=== PATIENT | male | born 1960 | race Caucasian/White ===

== ENCOUNTER 2017-10-18 19:32 | Emergency (ER) | payer BC, SELFPAY ==
[2017-10-18 19:35] VITALS: BP 162/119; PULSE 98; RESP 18; TEMP 36.5; O2SAT 99; BMI 29.6
--- NOTE | 2017-10-18 19:36 | ED.RN ---
RN CALLED FOR EKG, PULLED OLD EKG'S FOR
[2017-10-18 19:52] VITALS: PULSE 89; RESP 15; O2SAT 98
--- NOTE | 2017-10-18 19:58 | EKG12_ITS ---
Test Reason : CP Blood Pressure : / mmHG Vent. Rate : 092 BPM Atrial Rate : 092 BPM P-R Int : 142 ms QRS Dur : 090 ms QT Int : 340 ms P-R-T Axes : 051 045 052 degrees QTc Int : 420 ms Normal sinus rhythm Normal ECG Confirmed by LUCÍA BRADLEY, PA ([id number]), associate entertainment editor CALLUM WELLS ([id number]) on 10/23/2017 3:37:44 PM Referred By: ER PHYS Confirmed By:PA CASTREJON MD
--- NOTE | 2017-10-18 20:01 | RAD_ITS ---
STUDY: X-RAY CHEST REASON FOR EXAM: Male, 57 years old. Chest pain TECHNIQUE: A single frontal view of the chest was obtained. COMPARISON: July 10, 2016 FINDINGS: The lungs are adequately aerated. There are no focal airspace opacities. There is no demonstrated pleural abnormality. The cardiac silhouette is normal in size. The mediastinum and hilar regions are unremarkable. Normal visualized pulmonary arteries. Normal visualized aortic arch and descending thoracic aorta. There are diffuse degenerative changes of the visualized spine. There are degenerative changes in both shoulders. There is no demonstrated abnormality of the visualized upper abdomen. RAD/Chest 1 View (Portable) IMPRESSION: No acute cardiopulmonary abnormalities. Electronically Signed: Rosalind Arevalo MD at 21:09 EDT Tel Direct: [phone], Service support ,
[2017-10-18 20:14] VITALS: O2SAT 98
[2017-10-18 20:24] LABS: Absolute Lymphocyte Count 2.19 X10^3/ul (0.83-4.51); Absolute Neutrophil Count 3.9 X10^3/uL (2.0-7.7); Basophil# 0.01 X10^3/uL; Basophil% 0.1 % (0-1); Eosinophil# 0.11 X10^3/uL; Eosinophils% 1.6 % (0-5); Hematocrit 48.7 % (40-54); Hemoglobin 16.7 g/dl (13.0-16.5); Lymphocyte # 2.19 X10^3/ul (4.0); Lymphocyte % 32.7 % (19-41); Mean Corp Hgb Conc 34.3 g/gl (32-36); Mean Corpuscular Hgb 31.4 pg (27.0-32.0); Mean Corpuscular Volume 91.5 fL (80-94); Mean Platelet Vol. 11.7 fl (6.2-12.0); Monocyte# 0.43 X10^3/uL; Monocyte% 6.4 % (0-10); Neutrophil # 3.93 X10^3/uL (2.7-7.7); Neutrophil % 58.9 % (47-70); Platelet Count 142 K/mm3 (150-450); RBC Distribution Width CV 12.7 % (11.6-14.6); RBC Distribution Width SD 42.3 fl (35.1-43.9); Red Blood Count 5.32 M/mm3 (4.6-6.2); White Blood Count 6.7 K/mm3 (4.4-11.0)
[2017-10-18 20:26] LABS: POSITIVE COUNT NO; POSITIVE DIFFERENTIAL NO; POSITIVE MORPHOLOGY NO
[2017-10-18 20:45] LABS: Anion Gap 10 (5-15); BUN 13 mg/dL (7-18); BUN/Creat Ratio 10.8 RATIO (10-20); Calcium,Total 9.3 mg/dL (8.5-10.1); Chloride 104 mmol/L (98-107); EST Glomerular Filtration Rate 67 mL/min (>60); Est Glom Filt Rate - Afr Amer 81 mL/min (>60); Estimated Creatinine Clearance 69.55 ml/min; Glucose 170 mg/dL (74-106); Potassium 4.4 mmol/L (3.5-5.1); Sodium Level 140 mmol/L (136-145)
[2017-10-18] MEDS: Aspirin 81 MG TAB.CHEW 324 MG PO (20:50)
[2017-10-18 21:32] VITALS: BP 108/76; PULSE 96; RESP 18; O2SAT 96
--- NOTE | 2017-10-18 22:49 | ED.VISSUMM ---
- ER Visit Summary Date of Service: 10/18/17 Chief Complaint: Chest pain History of Present Illness: The patient is a 57 M history of noncemented diabetes, hypertension, high cholesterol. Patient had a cardiac workup June 2016 had a nuclear stress test that time which was negative. He has never had a cardiac catheterization. Today at home while at rest while watching TV he had chest tightness. Symptoms across his chest and down both arms. He describes it as a tightness and pressure. He denies any recent exertional chest pain. He had no nausea nor shortness of breath with this pain today. He denies any diaphoresis. He has no leg pain or swelling. He has never had a DVT or PE. He denies any recent hospitalization or mobilization. He denies any calf pain or hemoptysis. The pain was not pleuritic. Physical Examination: Well-appearing middle-age male. Vital signs are stable afebrile. His initial blood pressure is 162/119. Currently is 108/76. H EENT exam unremarkable. Neck nontender no JVD. Lungs clear to auscultation bilaterally. Chest wall nontender. Heart regular rate and rhythm no murmur. Rate about 90. Abdomen soft nontender. He is moving all 4 extremities. Neurovascular intact. Radial pulses are equal. Calves are nontender without edema or cords. Back exam normal. Neurologically is awake and alert without focal motor deficits. Test Results: Chest x-ray read by myself the radiologist showed no acute abnormality. Normal cardiac silhouette and mediastinum. EKG sinus rhythm rate of 92 with no acute signs of CO or ischemia. Unchanged when EKG from last year. CBC shows a normal white count of 6. Hemoglobin is 16. He is chronically low platelets at 142,000. BMP unremarkable. Troponin normal. Emergency Department Course and Treatment: Patient with nonexertional chest pain. Negative cardiac workup in June in 2016. Treatment Plan: Patient cardiac workup was negative. He does not have a significant family history of cardiac disease. He is a non-smoker. He had a negative stress test a little over one year ago. I am comfortable with him being discharged to home. I will have him follow-up with skeiner on-call Dr. Asad Falcon for further evaluation of this atypical chest pain. Disposition: Discharge Impression: Acute chest pain uncertain etiology This note was generated with [employer] software. It may contain incorrect words, spelling, and punctuation that were not noted in review of the chart prior to signing ED Disposition - Plan for ED Patient: Chief Complaint: Chest Pain Referrals: Mik Terry MD [Primary Care Provider] -
--- NOTE | 2017-10-18 22:53 | ED.DCSUM_ITS ---
- ER Visit Summary Date of Service: 10/18/17 Chief Complaint: Chest pain History of Present Illness: The patient is a 57 M history of noncemented diabetes, hypertension, high cholesterol. Patient had a cardiac workup June 2016 had a nuclear stress test that time which was negative. He has never had a cardiac catheterization. Today at home while at rest while watching TV he had chest tightness. Symptoms across his chest and down both arms. He describes it as a tightness and pressure. He denies any recent exertional chest pain. He had no nausea nor shortness of breath with this pain today. He denies any diaphoresis. He has no leg pain or swelling. He has never had a DVT or PE. He denies any recent hospitalization or mobilization. He denies any calf pain or hemoptysis. The pain was not pleuritic. Physical Examination: Well-appearing middle-age male. Vital signs are stable afebrile. His initial blood pressure is 162/119. Currently is 108/76. H EENT exam unremarkable. Neck nontender no JVD. Lungs clear to auscultation bilaterally. Chest wall nontender. Heart regular rate and rhythm no murmur. Rate about 90. Abdomen soft nontender. He is moving all 4 extremities. Neurovascular intact. Radial pulses are equal. Calves are nontender without edema or cords. Back exam normal. Neurologically is awake and alert without focal motor deficits. Test Results: Chest x-ray read by myself the radiologist showed no acute abnormality. Normal cardiac silhouette and mediastinum. EKG sinus rhythm rate of 92 with no acute signs of CA or ischemia. Unchanged when EKG from last year. CBC shows a normal white count of 6. Hemoglobin is 16. He is chronically low platelets at 142,000. BMP unremarkable. Troponin normal. Emergency Department Course and Treatment: Patient with nonexertional chest pain. Negative cardiac workup in June in 2016. Treatment Plan: Patient cardiac workup was negative. He does not have a significant family history of cardiac disease. He is a non-smoker. He had a negative stress test a little over one year ago. I am comfortable with him being discharged to home. I will have him follow-up with maintenance service technician on-call Dr. Asad Falcon for further evaluation of this atypical chest pain. Disposition: Discharge Impression: Acute chest pain uncertain etiology This note was generated with [employer]™ [employer] software. It may contain incorrect words, spelling, and punctuation that were not noted in review of the chart prior to signing ED Disposition - Plan for ED Patient: Chief Complaint: Chest Pain Referrals: Mik Terry MD [Primary Care Provider] -
--- NOTE | 2017-10-18 22:53 | ED.DEP ---
ED Disposition - Plan for ED Patient: Disposition: Home or Assisted Living Chief Complaint: Chest Pain Instructions: ED Chest Pain Atypical Unkn Cause Referrals: Mik Terry MD [Primary Care Provider] - As Needed Asad Falcon MD [STAFF PHYSICIAN] - As soon as possible Additional Instructions: Chest pain of uncertain etiology. Take 1 baby aspirin per day. Call follow-up with Dr. Falcon of cardiology for further evaluation.
[2017-10-18 23:01] VITALS: BP 125/84; PULSE 103; RESP 18
== END 2017-10-18 23:02 | disposition home or self-care (01) ==
PROVIDERS: Emergency Provider Emergency Medicine; Family Provider Internal Medicine; PCP Internal Medicine
DX: R07.9 Chest pain, unspecified (principal); D69.6 Thrombocytopenia, unspecified; E11.9 Type 2 diabetes mellitus without complications; I10 Essential (primary) hypertension; E78.00 Pure hypercholesterolemia, unspecified; Z79.84 Long term (current) use of oral hypoglycemic drugs; Z79.82 Long term (current) use of aspirin; Z79.899 Other long term (current) drug therapy
CPT/HCPCS: 71045; 80048; 84484; 85025; 93005; 99284; A4216

== ENCOUNTER → 2018-05-01 12:25 | Outpatient (CLI) | payer BC, SELFPAY ==
[2018-04-08 08:48] VITALS: BMI 29.7
--- NOTE | 2018-05-01 12:26 | CT_ITS ---
STUDY: CT CHEST WITHOUT CONTRAST REASON FOR EXAM: Male, 58 years old. Chest pain. Elevated cholesterol. Calcium scoring examination. This is a radiological over read. RADIATION DOSAGE (If Supplied By Facility): CTDIvol = ( 12.19 ) mGy, DLP = ( 219.42 ) mGycm TECHNIQUE: Transaxial imaging was performed without the administration of intravenous contrast material. Individualized dose optimization techniques were used for this CT. COMPARISON: None. FINDINGS: The lungs are normal. There is no demonstrated pleural abnormality. Normal heart and pericardium. There are multiple small lymph nodes within the mediastinum, which are normal in size and morphology most compatible with reactive lymph hyperplasia. Normal hilar regions. Normal unenhanced pulmonary arteries. Atherosclerotic plaque formation of the descending aorta and aortic arch. There are degenerative changes of the thoracic spine. Small hiatal hernia. Fatty infiltration of the liver. CT/CCTA Calcium Scoring IMPRESSION: No acute abnormality is seen. Electronically Signed: Evaristo Parish MD at 13:24 EST Tel [phone], Service support ,
--- NOTE | 2018-05-01 12:26 | CDU_ITS ---
Reason For Study: Carotid bruit Rt. Velocities/BP Lt. Velocities/BP Prox CCA 112.0/20.5 cm/sec. Prox CCA 108.0/25.2 cm/sec. Mid CCA 97.9/19.9 cm/sec. Mid CCA 100.0/27.0 cm/sec. Dist CCA 85.6/20.5 cm/sec. Dist CCA 101.0/23.5 cm/sec. Prox ICA 66.8/18.8 cm/sec. Prox ICA 145.0/40.9 cm/sec. Mid ICA 62.7/25.2 cm/sec. Mid ICA 97.4/25.9 cm/sec. Dist ICA 55.1/821.1 cm/sec. Dist ICA 62.6/21.2 cm/sec. Rt. ICA/CCA = .68. Lt. ICA/CCA = 1.5. Prox ECA 106.0/14.7 cm/sec. Prox ECA 153.0/26.7 cm/sec. Rt. Vert. 31.8/11.0 cm/sec. Lt. Vert. 32.2/11.8 cm/sec. Right Extracranial There is intimal thickening but no significant atherosclerotic plaque noted in the right common carotid artery. There is heterogeneous, irregular atherosclerotic plaque noted in the right internal carotid artery. There is heterogeneous, smooth atherosclerotic plaque noted in the right external carotid artery. Antegrade flow is noted in the right vertebral artery. Left Extracranial There is intimal thickening but no significant atherosclerotic plaque noted in the left common carotid artery. There is heterogeneous, irregular atherosclerotic plaque noted in the left internal carotid artery. There is heterogeneous, irregular atherosclerotic plaque noted in the left external carotid artery. Antegrade flow is noted in the left vertebral artery. Procedure Carotid Duplex 99350. Exam performed in department. Interpretation Summary Minimal irregular plague at the proximal right internal carotid with <50% stenosis. Moderate irregular plague at the proximal left internal carotid with 50-69% stenosis Normal flow right external carotid Mild disease left external carotid Patent and antegrade vertebrals bilaterally Findings are similar to 02/19/17 Ordering Physician: Asad Falcon Referring Physician: Mik Terry M.D. Performed By: Noemi Sorto RVT
--- NOTE | 2018-05-01 12:30 | CT_ITS ---
STUDY: CT CHEST WITHOUT CONTRAST REASON FOR EXAM: Male, 58 years old. Chest pain. Elevated cholesterol. Calcium scoring examination. This is a radiological over read. RADIATION DOSAGE (If Supplied By Facility): CTDIvol = ( 12.19 ) mGy, DLP = ( 219.42 ) mGycm TECHNIQUE: Transaxial imaging was performed without the administration of intravenous contrast material. Individualized dose optimization techniques were used for this CT. COMPARISON: None. FINDINGS: The lungs are normal. There is no demonstrated pleural abnormality. Normal heart and pericardium. There are multiple small lymph nodes within the mediastinum, which are normal in size and morphology most compatible with reactive lymph hyperplasia. Normal hilar regions. Normal unenhanced pulmonary arteries. Atherosclerotic plaque formation of the descending aorta and aortic arch. There are degenerative changes of the thoracic spine. Small hiatal hernia. Fatty infiltration of the liver. CT/Limited Chest CT w/CCTA IMPRESSION: No acute abnormality is seen. Electronically Signed: Evaristo Parish MD at 13:24 EST Tel [phone], Service support ,
[2018-05-01 12:37] VITALS: BP 113/70; PULSE 79; RESP 16; O2SAT 96; BMI 28.8
[2018-05-01 12:49] VITALS: BP 113/70; PULSE 81
[2018-05-01] MEDS: Metoprolol Tartrate 5 MG/5 ML Vial IV (12:49)
[2018-05-01 12:55] VITALS: PULSE 72; RESP 16
[2018-05-01 12:58] VITALS: PULSE 73; RESP 16
[2018-05-01 13:25] VITALS: BP 115/77; PULSE 72; RESP 16; O2SAT 94
--- NOTE | 2018-05-01 17:23 | CA.SCORE ---
Calcium Scoring Date of Study:: 05/01/18 Coronary Calcium Scoring: Coronary calcium scoring. High-resolution computed tomographic imaging of the chest was performed on 05/01/2018 with particular attention paid to the coronary arteries. Images from the examination were analyzed for the presence and extent of coronary artery calcification using the coronary calcification soft quantification software. The patient tolerated the procedure well there were no complications. The results of the coronary calcification analysis are noted below. Left main coronary artery score 0. Left anterior descending artery score 0. Left circumflex artery score 0. Right coronary artery score 0. Total calcium Agagston score 0. The above suggests no significant atherosclerotic plaque identified. Very low cardiovascular risk is suggested.
== END ==
PROVIDERS: Family Provider Internal Medicine; PCP Internal Medicine; Referring Provider Internal Medicine Cardiovascular Disease; Visit Provider Internal Medicine Cardiovascular Disease
DX: R07.9 Chest pain, unspecified (principal); R09.89 Other specified symptoms and signs involving the circulatory and respiratory systems; I10 Essential (primary) hypertension; E11.9 Type 2 diabetes mellitus without complications; E78.5 Hyperlipidemia, unspecified
CPT/HCPCS: 75571; 76380; 93880

== ENCOUNTER → 2020-06-14 15:14 | Outpatient (CLI) | payer OTHER, SELFPAY ==
[2020-05-26 12:21] VITALS: BMI 29.5
--- NOTE | 2020-06-14 15:19 | ECHOCS_ITS ---
Reason For Study: Tachycardia Procedure This was a 2D Doppler, Color Flow transthoracic echocardiogram. The study was technically difficult. Contrast injection was performed. Exam performed in department. Left Ventricle Normal LV size. Mild concentric left ventricular hypertrophy. Left ventricular systolic function is normal. The estimated ejection fraction is 65 %. Stage 1 diastolic dysfunction. No regional wall motion abnormalities noted. Right Ventricle Normal RV size. Normal systolic function. Atria Normal left atrium. Mitral Valve Normal mitral valve. Tricuspid Valve Normal tricuspid valve. Aortic Valve Normal aortic valve. Pulmonic Valve The pulmonic valve is not well visualized. Great Vessels Normal aortic root. The pulmonary artery is normal size. Normal inferior vena cava. Pericardium/Pleural No pericardial effusion. Medication 22 gauge I.V. with prn adaptor inserted into left arm. Diluted definity 3ml given slow IV push to enhance endocardial definition. MMode/2D Measurements & Calculations LVIDd: 4.5 cm IVSd: 1.3 cm Ao root diam: 3.5 cm LVIDs: 3.0 cm LVPWd: 1.2 cm LA dimension: 3.2 cm FS: 32.0 % LAV(MOD-sp4): 23.9 ml LA A4 area: 12.6 cm2 RA A4 area: 12.2 cm2 Time Measurements MV dec time: 0.26 sec Doppler Measurements & Calculations MV E max prasad: 57.3 cm/sec Lat Peak E' Prasad: 9.0 cm/sec Med Peak E' Prasad: 7.0 cm/sec MV A max prasad: 72.5 cm/sec E/E' lat: 6.4 E/E' med: 8.2 MV E/A: 0.79 MV V2 max: 74.4 cm/sec MV P1/2t max prasad: 53.6 cm/sec Ao V2 max: 125.8 cm/sec MV max P.2 mmHg MV P1/2t: 64.5 msec Ao max P.3 mmHg MV V2 mean: 41.2 cm/sec MV dec slope: 243.3 cm/sec2 MV mean P.80 mmHg MV V2 VTI: 14.7 cm MVA(P1/2t): 3.4 cm2 LV V1 max: 113.6 cm/sec PA V2 max: 70.2 cm/sec LV V1 max P.2 mmHg Interpretation Summary Normal LV size. Left ventricular systolic function is normal. The estimated ejection fraction is 65 %. Stage 1 diastolic dysfunction. Mild concentric left ventricular hypertrophy. Contrast injection was performed. Ordering Physician: Asad Falcon Referring Physician: Mik Terry M.D. Performed By: Stephen Gordon RCS
== END ==
PROVIDERS: PCP Internal Medicine; Referring Provider Internal Medicine Cardiovascular Disease; Visit Provider Internal Medicine Cardiovascular Disease
DX: R00.0 Tachycardia, unspecified (principal)
CPT/HCPCS: 93306; Q9957; A4216; C8929

== ENCOUNTER → 2025-02-01 | Outpatient (CLI) | payer BC, OTHER, SELFPAY | END | disposition home or self-care (01) | LOC: PSN 13:31 | PROVIDERS: PCP Internal Medicine; Referring Provider Internal Medicine Cardiovascular Disease; Visit Provider Internal Medicine Cardiovascular Disease | DX: I48.0 Paroxysmal atrial fibrillation (principal) | CPT/HCPCS: 93225; 93226 ==

== ENCOUNTER → 2025-02-16 | Outpatient (CLI) | payer BC, OTHER, SELFPAY ==
--- NOTE | 2025-02-16 06:48 | ECHOD_ITS ---
Reason For Study ECHO/Echo Complete
--- NOTE | 2025-02-17 19:58 | STRESSREP_ITS ---
Stress Test Report
--- NOTE | 2025-02-17 19:58 | STRESSREP ---
Stress Test Report Exercise myocardial perfusion stress test. 65-year-old man with a history of chest pain. Stress protocol: Resting EKG demonstrates normal sinus rhythm with a rate of 80 bpm resting blood pressure is 132/80 mmHg. The patient exercised according to the regular Aleksander protocol for a total duration of 7-1/2 minutes attaining a maximum heart rate of 169 bpm which was 107% of maximum predicted heart rate; the maximum workload was 10.1 metabolic equivalents. At rest there were no ST or T wave changes noted to suggest ischemia and at peak exercise upsloping ST changes only were noted which did not meet the criteria for ischemia. No clinical angina was noted the test was terminated due to the target heart rate being achieved/fatigue. The peak blood pressure was 200/82 mmHg. Rate-pressure product was 31,000. Myocardial perfusion protocol. 14.2 mCi of technetium 99m sestamibi was injected at rest. The patient exercised according to regular Aleksander protocol for total duration of 7-1/2 minutes and at peak exercise 44.1 mCi of technetium 99m sestamibi was injected stress images were obtained stress and rest images were reconstructed in comparing the short axis vertical long and horizontal long axis. Gated images were also obtained. Perfusion SPECT analysis: Review of the stress images demonstrate normal uptake of tracer noted in all areas of the myocardium. The resting images similarly demonstrate normal uptake of tracer noted in all areas of the myocardium. No areas of reversibility are noted to suggest ischemia no previous infarct was noted. Gated SPECT analysis: The gated ejection fraction is 69%. Conclusion: Normal exercise myocardial perfusion stress test at a high workload.
== END | disposition home or self-care (01) ==
LOC: CVS 06:48
PROVIDERS: PCP Internal Medicine; Referring Provider Internal Medicine Cardiovascular Disease; Visit Provider Internal Medicine Cardiovascular Disease
DX: R07.9 Chest pain, unspecified (principal); I10 Essential (primary) hypertension; E78.00 Pure hypercholesterolemia, unspecified
CPT/HCPCS: 78452; 93017; 93306; A9500; A4216